=== PATIENT | male | born 1960 | race Caucasian/White ===

== ENCOUNTER 2018-12-01 07:11 | Emergency (ER) | payer BC, OTHER ==
[~2018-12-01] VITALS: Ht 170.2 cm; Wt 67.1 kg
[2018-12-01] MEDS ORDERED: ALBUTEROL SULFATE 2.5 MG/3 ML NEBU NEB ONE (07:30)
[2018-12-01] MEDS ORDERED: IPRATROPIUM BROMIDE 0.5 MG/2.5 ML NEBU NEB ONE (07:30)
[2018-12-01] MEDS ORDERED: IPRATROPIUM BROMIDE 0.5 MG/2.5 ML NEBU ONE (07:40)
[2018-12-01] MEDS ORDERED: ALBUTEROL SULFATE 2.5 MG/3 ML NEBU ONE (07:40)
--- NOTE | 2018-12-01 08:09 | NUR ---
Patient discharged to home in stable conditon. Written and verbal after care instructions given to patient. Patient verbalizes understanding of instructions.
== END 2018-12-01 08:12 | disposition home or self-care (01) ==
LOC: ER 07:11
DX: J18.9 Pneumonia, unspecified organism (principal)
CPT/HCPCS: 71045; A4663; J3590

== ENCOUNTER 2019-10-07 12:03 | Emergency (ER) | payer SELFPAY ==
[~2019-10-07] VITALS: Ht 170.2 cm; Wt 67.1 kg
[2019-10-07] MEDS ORDERED: FLUORESCEIN SODIUM 1 MG STRIP ONE (12:15)
[2019-10-07] MEDS ORDERED: TETRACAINE HCL 0.5% OPHT DROP 2 ML BOTTLE ONE ×2 (12:15→13:07)
[2019-10-07] MEDS ORDERED: TETRACAINE HCL 0.5% OPHT DROP 2 ML BOTTLE OP ONE (12:15)
[2019-10-07] MEDS ORDERED: FLUORESCEIN SODIUM 1 MG STRIP OP ONE (12:15)
--- NOTE | 2019-10-07 12:26 | NUR ---
Patient in room #5a. Patient evaluated by Dr. Purdy
--- NOTE | 2019-10-07 12:38 | NUR ---
Flushed patients right eye with N/S per MD instruction. Patient tolerated well.
[2019-10-07] MEDS ORDERED: HYDROCODONE/APAP 5-325MG TABLET PO ONE (12:45)
[2019-10-07] MEDS ORDERED: CIPROFLOXACIN 0.3% OPHT DROP 2.5 ML BOTTLE OP ONE (13:00)
[2019-10-07] MEDS ORDERED: CYCLOPENTOLATE 1% OPHT DROP 2 ML BOTTLE OP ONE (13:00)
[2019-10-07] MEDS ORDERED: TDAP DIPH,PERTUSS,TET VAC/PF 0.5 ML DISP.SYRIN IM ONE ×2 (13:00→13:08)
[2019-10-07] MEDS ORDERED: CYCLOPENTOLATE 1% OPHT DROP 2 ML BOTTLE ONE (13:07)
[2019-10-07] MEDS ORDERED: HYDROCODONE/APAP 5-325MG TABLET ONE (13:07)
--- NOTE | 2019-10-07 13:47 | NUR ---
Patient discharged to home in stable conditon. Patient instructed not to drive. Written and verbal after care instructions given. Patient verbalizes understanding of instructions.
== END 2019-10-07 13:52 | disposition home or self-care (01) ==
LOC: ER 12:03
DX: S05.01XA Injury of conjunctiva and corneal abrasion without foreign body, right eye, initial encounter (principal); X58.XXXA Exposure to other specified factors, initial encounter; Y93.89 Activity, other specified; Y92.89 Other specified places as the place of occurrence of the external cause; Y99.8 Other external cause status
CPT/HCPCS: 90715; A4217; A4663